=== PATIENT | female | born 1965 | race Hispanic/Latino ===

== ENCOUNTER 2020-07-18 05:17 | Observation (INO) | payer BC, OTHER ==
[2020-07-13 10:15] LABS: BASOPHILS % 0.5 % (0.0-1.0); EOSINOPHILS # (AUTO) 0.1 (0.0-0.4); EOSINOPHILS % 1.5 % (0.0-6.0); HEMATOCRIT 43.2 % (34.2-44.1); HEMOGLOBIN 13.9 g/dL (12.0-16.0); LYMPHOCYTES # (AUTO) 1.7 (1.0-3.2); LYMPHOCYTES % 19.7 % (18.0-39.1); MEAN CORPUSCULAR HEMOGLOBIN 28.4 pg (28-32); MEAN CORPUSCULAR HGB CONC 32.2 g/dL (31-35); MEAN CORPUSCULAR VOLUME 88.3 fL (81-99); MONOCYTES # (AUTO) 0.5 (0.2-0.8); MONOCYTES % 5.2 % (4.4-11.3); NEUTROPHILS # (AUTO) 6.4 (2.1-6.9); NEUTROPHILS % 72.8 % (38.7-80.0); PLATELET COUNT 221 x10e3/uL (140-360); RED BLOOD COUNT 4.89 x10e6/uL (3.6-5.1); RED CELL DISTRIBUTION WIDTH 13.8 % (11.7-14.4)
[2020-07-13 10:38] LABS: ALANINE AMINOTRANSFERASE 27 IU/L (0-55); ALBUMIN 4.4 g/dL (3.5-5.0); ALBUMIN/GLOBULIN RATIO 1.6 (0.8-2.0); ALKALINE PHOSPHATASE 88 IU/L (40-150); BLOOD UREA NITROGEN 13 mg/dL (7-26); BUN/CREATININE RATIO 16 (6-25); CALCIUM 9.3 mg/dL (8.4-10.2); CARBON DIOXIDE 25 mmol/L (22-29); CHLORIDE 106 mmol/L (98-107); CREATININE, SERUM 0.79 mg/dL (0.57-1.11); EST GLOMERULAR FILTRATION RATE > 60 ML/MIN (60-); GLUCOSE 130 mg/dL (74-118); SODIUM 141 mmol/L (136-145)
[~2020-07-18] VITALS: Ht 152.4 cm; Wt 103.4 kg
[2020-07-18] VITALS (7 sets, daily range): BP systolic 122–157; BP diastolic 70–78
[~2020-07-18 05:17] MED LIST: FLANAX220 MG PO; TYLENOL325 MG PO
--- NOTE | 2020-07-18 07:15 | NUR ---
SPIRITUAL CARE - Pre-Surgery Assessment: Pt in bed. Pt's at bedside. Pt reported supportive attention from family and friends. Intervention: Corporate Specialist provided pastoral presence, hospitality, and sympathetic listening. Acquainted pt with availability of strategic planning specialist while hospitalized. Outcome: Pt expressed appreciation for visit. No need for follow up indicated at this time. SHAWANDA Haddad Spiritual Care Department O: [phone]
[2020-07-18] MEDS ORDERED: LIDOCAINE HCL (LTA) 4 ML SOLN ONE (07:42)
[2020-07-18] MEDS ORDERED: BUPIVACAINE 0.5%/EPI 30 ML SDV INJ ONE (08:26)
[2020-07-18] MEDS ORDERED: KETOROLAC TROMETHAMINE 30 MG/ML VIAL IV PRN (11:15)
[2020-07-18] MEDS ORDERED: HYDROCODONE/APAP 7.5MG-325MG 1 EA TAB PO PRN (11:15)
[2020-07-18] MEDS ORDERED: FENTANYL CITRATE/PF 100MCG/2 ML INJ ONE (11:42)
--- NOTE | 2020-07-18 11:55 | Operative Report ---
DATE OF PROCEDURE: 07/18/2020 SURGEON: Memo Alex MD PREOPERATIVE DIAGNOSIS: Recurrent ventral hernia. POSTOPERATIVE DIAGNOSIS: Recurrent ventral hernia. OPERATION PERFORMED: Repair of recurrent ventral hernia with mesh. ANESTHESIA: General. COMPLICATIONS: None. ESTIMATED BLOOD LOSS: Minimal. DESCRIPTION OF PROCEDURE: With the patient lying in bed in the supine position under good general endotracheal anesthesia, the abdomen was prepped with Betadine solution and draped in the usual manner. A midline incision was made and curved slightly around the umbilicus and deepened through the subcutaneous tissue, immediately in the epigastric area and the subumbilical area, two large hernia sacs were encountered. The hernia sac was then dissected all the way around with normal fascia all the way around. The umbilicus was then detached from the lower hernia sac. After this was done, the hernia sacs were then opened and a large amount of incarcerated omentum was contained within both hernia sacs. The two hernia sacs were incorporated into a single defect and all the adhesions to the sac were then divided and the omentum that was incarcerated within the two hernia sacs was then slowly and carefully reduced back to the intra-abdominal cavity. Examination at this point revealed that the fascia in the epigastric area was rather lax and we decided to go ahead and do a repair with mesh from the inside. An appropriate sized Physiomesh was then placed and anchored in all six corners with transabdominal sutures of #1 Prolene. After this was done, the skirt was then further tacked with the Tacker and this gave us a satisfactory anchoring of the mesh. Once this was done, the hernia defect was then closed with interrupted sutures of 0 Ethibond and a running #1 Vicryl. This gave us a satisfactory repair without any tension. The whole area was thoroughly irrigated. Perfect hemostasis was ascertained. The umbilicus was then tacked back down to the midline fascia with 3-0 Vicryl. The subcutaneous tissue was approximated with 2-0 Vicryl and the skin was closed with clips. A dressing was applied. The sponge, lap, and needle count was correct. The patient tolerated the procedure well and returned to the recovery room in stable condition. MD BRYSON Rosa/MODL /[id number]
[2020-07-18] MEDS: SODIUM CHLORIDE 0.9% 1000ML 1,000 ML IV SCH ×2 (13:15→21:15)
--- NOTE | 2020-07-18 13:15 | NUR ---
RCD PT FROM PACU BY BED PT IS ALERT AND ORIENTED VITALS CHECKED PT RESTING ON BED ADMISSION ASSESSMENT DONE PT HAVE SURGICAL WOUND ON ABDOMEN COVERED BY ABDOMINAL BINDER NO SIGNS ANY BLEEDING NOTED ,IV PATENT AND RUNNING 100 ML /HR ,INSTRUCTED THE PATIENT REGARDING HOSPITAL POLICY BED LOW AND LOCKED CALL LIGHT IN REACH
[2020-07-18] MEDS: PANTOPRAZOLE 40 MG 10ML VIAL IV SCH (14:00)
[2020-07-18] MEDS: CEFAZOLIN SOD 1 GM/NS 50ML 50 ML IV SCH (14:31)
--- NOTE | 2020-07-18 15:31 | NUR ---
SCDS ON BOTH LEGS
[2020-07-18] MEDS: HYDROMORPHONE 1MG/1ML INJ IV PRN ×2 (16:12→21:04)
--- NOTE | 2020-07-18 17:00 | NUR ---
PT RESTING ON BED SURGICAL SITE IS INTACT
--- NOTE | 2020-07-18 18:47 | NUR ---
PT RESTING ON BED BED SIDE REPORT GIVEN TO ONCOMING NURSE
--- NOTE | 2020-07-18 20:58 | NUR ---
Received change of shift report from AM nurse. Walking rounds completed.
[2020-07-18] MEDS ORDERED: LIDOCAINE HCL 2% LOCAL INJ 5 ML SDV VIAL INJ ONE (21:37)
[2020-07-18] MEDS ORDERED: ROCURONIUM BROMIDE 10 MG/ML 5ML VIAL IV ONE (21:37)
[2020-07-18] MEDS ORDERED: GLYCOPYRROLATE INJ 0.2 MG/ML VIAL ONE (21:37)
[2020-07-18] MEDS ORDERED: ONDANSETRON HCL INJ 2MG/ML 2ML 2 MG/ML VIAL ONE (21:37)
[2020-07-18] MEDS ORDERED: LIDOCAINE HCL 2% JELLY 5 ML TUBE ONE (21:37)
[2020-07-18] MEDS ORDERED: PROPOFOL IV EMULSION 10 MG/ML 20 ML VIAL ONE (21:37)
[2020-07-18] MEDS ORDERED: SEVOFLURANE INHAL SOLN 250 ML PEN BTL ONE (21:37)
[2020-07-18] MEDS ORDERED: KETOROLAC TROMETHAMINE 30 MG/ML VIAL ONE (21:37)
[2020-07-18] MEDS ORDERED: DEXAMETHASONE SOD PHOS INJ 4 MG/ML VIAL ONE (21:37)
[2020-07-18] MEDS ORDERED: NEOSTIGMINE 1 MG/ML 10ML VIAL ONE (21:37)
--- NOTE | 2020-07-18 21:45 | NUR ---
Patient in bed in supine position. C/O pain =6. Given pain med as ordered by MD. Assist patient to reposition in bed.IV intact to r FA with ns at100. SCD on. Continue monitor.
[2020-07-19] VITALS: BP 116/64
[2020-07-19] MEDS: CEFAZOLIN SOD 1 GM/NS 50ML 50 ML IV SCH (01:00)
[2020-07-19] MEDS: HYDROMORPHONE 1MG/1ML INJ IV PRN ×2 (03:25→08:30)
[2020-07-19 04:00] VITALS: BP 106/64
[2020-07-19 05:37] LABS: BASOPHILS % 0.2 % (0.0-1.0); HEMATOCRIT 36.3 % (34.2-44.1); HEMOGLOBIN 11.6 g/dL (12.0-16.0); LYMPHOCYTES # (AUTO) 1.5 (1.0-3.2); LYMPHOCYTES % 14.1 % (18.0-39.1); MEAN CORPUSCULAR HEMOGLOBIN 28.2 pg (28-32); MEAN CORPUSCULAR VOLUME 88.1 fL (81-99); MONOCYTES % 9.9 % (4.4-11.3); NEUTROPHILS # (AUTO) 7.8 (2.1-6.9); NEUTROPHILS % 75.4 % (38.7-80.0); PLATELET COUNT 215 x10e3/uL (140-360); RED BLOOD COUNT 4.12 x10e6/uL (3.6-5.1); RED CELL DISTRIBUTION WIDTH 13.9 % (11.7-14.4)
[2020-07-19 06:05] LABS: ANION GAP 16.1 mmol/L (8-16); BLOOD UREA NITROGEN 11 mg/dL (7-26); BUN/CREATININE RATIO 17 (6-25); CALCIUM 8.1 mg/dL (8.4-10.2); CARBON DIOXIDE 20 mmol/L (22-29); CHLORIDE 106 mmol/L (98-107); CREATININE, SERUM 0.65 mg/dL (0.57-1.11); EST GLOMERULAR FILTRATION RATE > 60 ML/MIN (60-); GLUCOSE 132 mg/dL (74-118); POTASSIUM 4.1 mmol/L (3.5-5.1); SODIUM 138 mmol/L (136-145)
--- NOTE | 2020-07-19 07:10 | NUR ---
RCD PT AT BED PT IS ALERT AND ORIENTED RESTING ON BED IV PATENT BY SALINE FLUSH DRESSING INTACT BED LOW AND LOCKED CALL LIGHT IN REACH
[2020-07-19] MEDS: SODIUM CHLORIDE 0.9% 1000ML 1,000 ML IV SCH (07:15)
[2020-07-19 08:41] VITALS: BP 130/63
[2020-07-19 08:48] VITALS: BP 130/63
[2020-07-19 12:53] VITALS: BP 134/70
[2020-07-19] MEDS ORDERED: NORCO 7.5-3251 EACH PO (12:53)
[2020-07-19] MEDS ORDERED: KEFLEX500 MG PO (12:54)
--- NOTE | 2020-07-19 13:15 | NUR ---
DISCHARGE INSTRUCTIONS GIVE BY THE HELP OF DORIS SHE SAID SHE UNDERSTOOD EVERYTHING
[2020-07-19] MEDS: PANTOPRAZOLE 40 MG 10ML VIAL IV SCH (13:48)
--- NOTE | 2020-07-19 14:05 | NUR ---
PT WENT HOME IN SAFE CONDITION WITH HER
== END 2020-07-19 14:05 | disposition home or self-care (01) ==
LOC: OR 05:17 → PACU V 11:11 → MED/SURG 13:21
PROVIDERS: ADMIT Surgery; ATTEND Surgery
DX: K43.2 Incisional hernia without obstruction or gangrene (principal); Z11.59 Encounter for screening for other viral diseases
CPT/HCPCS: 36415 ×2; 49565; 49568; 80048; 80053; 85025 ×2; 93005; C1781; C9113 ×2; G0378 ×2; J0690; J1100; J1170 ×2; J1885; J2001 ×2; J2405; J2704; J2710; J3010; J7030 ×2; U0002